=== PATIENT | male | born 1950 | race Two or more races ===

== ENCOUNTER 2021-02-19 08:46 | Emergency (ER) | payer OTHER, MEDICARE ==
[~2021-02-19] VITALS: Ht 177.8 cm; Wt 81.7 kg
[~2021-02-19 08:46] MED LIST: ASPI81CH PO; IBUP600 PO; LOSA25 PO; MULVITMINF PO; ROSU10TA PO
[2021-02-19] MEDS ORDERED: Norco 5-325 Ta1 EACH PO ×2 (08:59→12:11)
[2021-02-19 10:10] LABS: BASOPHILS ABSOLUTE AUTO 0.04 K/mm3 (0.00-0.23); BASOPHILS PERCENT AUTO 1 % (0-2); EOSINOPHILS ABSOLUTE AUTO 0.03 K/mm3 (0.00-0.68); EOSINOPHILS PERCENT AUTO 0 % (0-6); Hematocrit 49.8 % (37.0-53.0); Hemoglobin 17.2 g/dL (13.5-17.5); IMMATURE GRAN ABSOLUTE AUTO 0.04 K/mm3 (0.00-0.10); IMMATURE GRAN PERCENT AUTO 1 % (0-1); LYMPHOCYTES ABSOLUTE AUTO 1.43 K/mm3 (0.84-5.20); LYMPHOCYTES PERCENT AUTO 17 % (21-46); MONOCYTES PERCENT AUTO 6 % (4-13); Mean Corpuscular HGB 29.9 pg (26.0-34.0); Mean Corpuscular HGB Conc 34.5 g/dL (31.5-36.5); Mean Corpuscular Volume 87 fL (80-100); Mean Platelet Volume 8.6 fL (9.1-12.4); NEUTROPHILS ABSOLUTE AUTO 6.38 K/mm3 (1.96-9.15); NEUTROPHILS PERCENT AUTO 76 % (41-73); Platelet Count 309 K/mm3 (150-400); RDW Coefficient Variation 12.7 % (11.7-14.2); RDW Standard Deviation 40.5 fL (35.1-46.3); Red Blood Cell Count 5.75 M/mm3 (4.30-5.90); White Blood Cell Count 8.42 K/mm3 (4.00-11.30)
[2021-02-19 10:40] LABS: Alanine Aminotransfer (ALT/SGP 42 U/L (12-78); Albumin, Blood 4.2 g/dL (3.4-5.0); Albumin/Globulin Ratio 0.9 (0.8-1.8); Alk Phos 147 U/L (50-136); Anion Gap 5 mmol/L (6-16); Aspartate Aminotrans (AST/SGOT 23 U/L (12-37); Bilirubin, Total 0.8 mg/dL (0.1-1.0); Blood Urea Nitrogen 12 mg/dL (8-24); Bun/Creatinine Ratio 15.1 (12.0-20.0); CO2, Blood 30 mmol/L (21-32); Calcium, Blood 9.1 mg/dL (8.5-10.1); Chloride, Blood 103 mmol/L (98-108); Creatinine, Blood 0.79 mg/dL (0.60-1.20); Globulin, Blood 4.7 g/dL (2.2-4.0); Glomerular Filtration Rate >60 (60-); Glucose, Blood 104 mg/dL (70-99); Sodium, Blood 138 mmol/L (136-145); Total Protein, Blood 8.9 g/dL (6.4-8.2); Troponin I <0.015 ng/mL (0.000-0.040)
== END 2021-02-19 13:50 | disposition home or self-care (01) ==
LOC: ER 08:46
PROVIDERS: Physician Assistant
DX: R07.9 Chest pain, unspecified (principal); I10 Essential (primary) hypertension; Z79.899 Other long term (current) drug therapy; Z88.0 Allergy status to penicillin; Z88.2 Allergy status to sulfonamides; Z88.5 Allergy status to narcotic agent; Z91.09 Other allergy status, other than to drugs and biological substances
CPT/HCPCS: 36415; 71046; 80053; 83690; 84484; 85025; 93005; 93010; 99285-25; A9270

== ENCOUNTER 2025-01-26 11:19 | Inpatient (IN) | payer OTHER ==
[~2025-01-26] VITALS: Ht 177.8 cm; Wt 79.4 kg
[~2025-01-26 11:19] MED LIST changes: +ATOR40TA PO; +Amlodipine Bes2.5 MG PO; +LOSA50 PO; +METHOCARBAMOL1000 MG PO; +METOPROLOL PO; +Norco 10-325 T1 EACH; +Norco 5-325 Ta1 EACH PO
[2025-01-26 12:29] LABS: Hematocrit 44.6 % (37.0-53.0); Hemoglobin 15.9 g/dL (13.5-17.5); Mean Corpuscular HGB 30.5 pg (26.0-34.0); Mean Corpuscular HGB Conc 35.7 g/dL (31.5-36.5); Mean Corpuscular Volume 85 fL (80-100); Mean Platelet Volume 9.2 fL (9.1-12.4); Platelet Count 278 K/mm3 (150-400); RDW Coefficient Variation 12.6 % (11.7-14.2); RDW Standard Deviation 39.2 fL (35.1-46.3); Red Blood Cell Count 5.22 M/mm3 (4.30-5.90)
[2025-01-26 12:54] LABS: BAND PERCENT MAN 2 % (0-8); BASOPHILS ABSOLUTE MAN 0.27 K/mm3 (0.00-0.23); BASOPHILS PERCENT MAN 1 % (0-2); EOSINOPHILS PERCENT MAN 0 % (0-6); LYMPHOCYTES PERCENT MAN 9 % (21-46); MONOCYTES ABSOLUTE MAN 1.11 K/mm3 (0.16-1.47); MONOCYTES PERCENT MAN 4 % (4-13); SEG NEUTROPHILS PERCENT MAN 84 % (41-73); TOTAL CELLS COUNTED 100
[2025-01-26 12:55] LABS: Albumin, Blood 3.7 g/dL (3.4-5.0); Albumin/Globulin Ratio 0.9 (0.8-1.8); Bilirubin, Total 1.7 mg/dL (0.1-1.0); Bun/Creatinine Ratio 22.5 (12.0-20.0); Calcium, Blood 8.6 mg/dL (8.5-10.1); Creatinine, Blood 0.8 mg/dL (0.60-1.20); Globulin, Blood 4.2 g/dL (2.2-4.0); Potassium, Blood 3.6 mmol/L (3.5-5.5); Total Protein, Blood 7.9 g/dL (6.4-8.2)
[2025-01-26] MEDS ORDERED: NS 1,000 ML IV SCH ×2 (14:30→15:30)
[2025-01-26] MEDS ORDERED: MetroNIDAZOLE 500MG/NS 100 ml 100 ML IV ONE (14:35)
[2025-01-26] MEDS ORDERED: Ondansetron HCl 2 MG / ML 2ML Vial IV ONE (14:35)
[2025-01-26] MEDS ORDERED: Ciprofloxacin 400MG/D5 200ML 200 ML IV ONE (14:35)
[2025-01-26] MEDS ORDERED: Morphine Sulfate 4 MG/1 ML Injection IV ONE (14:35)
[2025-01-26 15:00] LABS: Source, Urine Clean Catch
[2025-01-26 15:12] LABS: Appearance, Urine Clear (Clear); Bilirubin, Urine Neg (Neg); Blood, Urine 5+ (Neg); Color, Urine Yellow (P-Yellow); Glucose Qualitative, Urine Neg (Neg); Ketones, Urine Neg (Neg); Leukocyte Esterase, Urine Neg (Neg); Nitrite, Urine Neg (Neg); Protein, Urine 2+ (Neg); Urobilinogen, Urine NORM (Normal)
[2025-01-26 15:24] LABS: Bacteria Few /hpf; Squamous Epithelial Cells Rare /hpf (Few); White Blood Cells, Urine 0-2 /hpf (0-5)
[2025-01-26] MEDS ORDERED: FLU VACC TS2024-25(6MOS UP)/PF 45 MCG/0.5 ML SYRINGE IM SCH (15:35)
[2025-01-26] MEDS ORDERED: HYDROcodone 5-APAP 325 TAB PO PRN (15:35)
[2025-01-26] MEDS ORDERED: Ondansetron HCl 2 MG / ML 2ML Vial IV PRN (15:35)
[2025-01-26] MEDS ORDERED: HYDROmorphone HCl 0.5 MG/0.5 ML SYR IV SCH ×2 (16:00→20:00)
[2025-01-26 16:57] VITALS: BP 135/80
[2025-01-26] MEDS ORDERED: CefTRIAXone Sodium 1,000 MG in NS 100 ML IV SCH (18:00)
[2025-01-26] MEDS ORDERED: CefTRIAXone Sodium 2,000 MG in NS 100 ML IV SCH (18:00)
[2025-01-26] MEDS ORDERED: HYDROmorphone HCl 0.5 MG/0.5 ML SYR IV PRN (18:25)
--- NOTE | 2025-01-26 18:49 | NUR ---
PT HAS BEEN STABLE SINCE ADMISSION. PAIN CONTROLLED WITH PRN MEDS. IV ABX ORDERED. FLUIDS INFUSING. PT HAS NO NAUSEA OR EMESIS. USING URINAL. PT SBA WITH PROSTHETIC DEVICES AND CRUTCH. PT NPO AT MIDNIGHT FOR SURGERY TOMORROW. AM LABS TO REPEAT IN AM. FAMILY AT BEDSIDE, ATTENTIVE.
[2025-01-26 19:42] VITALS: BP 115/72
[2025-01-26] MEDS ORDERED: Docusate Sodium 100 MG Cap PO SCH (21:00)
[2025-01-26] MEDS ORDERED: Sennosides 8.6 MG Tab PO SCH (21:00)
[2025-01-26] MEDS ORDERED: Lactobacil 2-S.Thermo-Bifido 1 1 Cap PO SCH (21:00)
[2025-01-26 23:33] VITALS: BP 108/78
[2025-01-27] VITALS (15 sets, daily range): BP systolic 90–125; BP diastolic 64–84
--- NOTE | 2025-01-27 05:34 | NUR ---
NOC SUMMARY- PAIN MANAGED WELL. PT HAS BEEN NPO SINCE OR. PT DENIES N/V. PT CHG BATH PROVIDED. PT CURRENTLY SLEEPING IN NO DISTRESS. CALL LIGHT IN REACH.
[2025-01-27 05:48] LABS: BASOPHILS ABSOLUTE AUTO 0.04 K/mm3 (0.00-0.23); BASOPHILS PERCENT AUTO 0 % (0-2); EOSINOPHILS ABSOLUTE AUTO 0.01 K/mm3 (0.00-0.68); EOSINOPHILS PERCENT AUTO 0 % (0-6); Hemoglobin 12.6 g/dL (13.5-17.5); IMMATURE GRAN ABSOLUTE AUTO 0.29 K/mm3 (0.00-0.10); IMMATURE GRAN PERCENT AUTO 1 % (0-1); LYMPHOCYTES ABSOLUTE AUTO 2.09 K/mm3 (0.84-5.20); LYMPHOCYTES PERCENT AUTO 9 % (21-46); MONOCYTES ABSOLUTE AUTO 1.29 K/mm3 (0.16-1.47); MONOCYTES PERCENT AUTO 6 % (4-13); Mean Corpuscular HGB 31.1 pg (26.0-34.0); Mean Corpuscular Volume 86 fL (80-100); Mean Platelet Volume 9.6 fL (9.1-12.4); NEUTROPHILS PERCENT AUTO 84 % (41-73); Platelet Count 205 K/mm3 (150-400); RDW Coefficient Variation 13.2 % (11.7-14.2); RDW Standard Deviation 41.2 fL (35.1-46.3); Red Blood Cell Count 4.05 M/mm3 (4.30-5.90); White Blood Cell Count 23.22 K/mm3 (4.00-11.30)
[2025-01-27 06:17] LABS: Albumin, Blood 2.6 g/dL (3.4-5.0); Albumin/Globulin Ratio 0.7 (0.8-1.8); Bilirubin, Total 1.4 mg/dL (0.1-1.0); Bun/Creatinine Ratio 17.7 (12.0-20.0); Calcium, Blood 7.5 mg/dL (8.5-10.1); Creatinine, Blood 0.9 mg/dL (0.60-1.20); Globulin, Blood 3.5 g/dL (2.2-4.0); Potassium, Blood 3.6 mmol/L (3.5-5.5); Total Protein, Blood 6.1 g/dL (6.4-8.2)
[2025-01-27] MEDS ORDERED: Indocyanine Green 25 MG Vial IV ONE (07:20)
[2025-01-27] MEDS ORDERED: FentaNYL Citrate 50 MCG/ML 2 ML Injection ONE (07:55)
[2025-01-27] MEDS ORDERED: Rocuronium Bromide 10 MG/ML 5ML Injection IV ONE (07:55)
[2025-01-27] MEDS ORDERED: propofoL 20 ML IV ONE (07:55)
[2025-01-27] MEDS ORDERED: Bupivacaine 0.5% HCl 5 MG/ML 30MLVIAL ONE (08:09)
[2025-01-27] MEDS ORDERED: Lidocaine HCl 4% 5 ML SDA ONE (08:30)
[2025-01-27] MEDS ORDERED: Methocarbamol 500 MG Tab PO PRN (08:40)
[2025-01-27] MEDS ORDERED: Dexamethasone Sod Phos 10 MG/ML 1ML VIAL ONE (08:49)
[2025-01-27] MEDS ORDERED: Ondansetron HCl 2 MG / ML 2ML Vial ONE (08:49)
[2025-01-27] MEDS ORDERED: Sugammadex Sodium 200 MG/2ML SDV (100 MG/ML) ONE (08:50)
[2025-01-27] MEDS ORDERED: AmLODIPine Besylate 5 MG Tab PO SCH ×2 (09:00→18:00)
[2025-01-27] MEDS ORDERED: Metoprolol Succinate 25 MG TABCR PO SCH (09:00)
[2025-01-27] MEDS ORDERED: Atorvastatin 40 MG Tab PO SCH (09:00)
[2025-01-27] MEDS ORDERED: Losartan Potassium 50 MG Tab PO SCH ×2 (09:00→20:00)
[2025-01-27] MEDS ORDERED: HYDROmorphone HCl/Pf 1MG SYR IV PRN (14:55)
--- NOTE | 2025-01-27 17:34 | NUR ---
PATIENT IS ALERT AND ORIENTED AND COOPERATIVE WITH CARE. POD [address] RODRIGUEZ. NO C/O PAIN FOLLOWING SURGERY. PATIENT REQUESTED TO STAY THE NIGHT TONIGHT. FAMILY HAS BEEN AT THE BEDSIDE THOUGHOUT THE SHIFT. VOIDING WITH THE URINAL. REPORTS PASSING GAS, NO BM. TOLERATING FOOD. ON RA. 4 INSERTIONS SITES TO ABDOMEN CLOSED WITH DERMABOND, NO DRAINAGE. AMBULATORY TO THE BATHROOM WITH PROSTETICS AND SBA. WILL CONTINUE TO MONITOR
[2025-01-27] MEDS ORDERED: Ciprofloxacin 400MG/D5 200ML 200 ML IV SCH (18:00)
[2025-01-28 04:30] VITALS: BP 122/84
--- NOTE | 2025-01-28 05:08 | NUR ---
NOC SUMMARY- PT POD #1. PT PAIN MANAGED WELL. PT HAS BEEN AMBULATORY. PT VOIDING WELL. PT TOLERATING PO INTAKE. PT HAS RESTED COMFORTABLY THROUGHOUT SHIFT. CALL LIGHT IN REACH.
[2025-01-28 05:39] LABS: BASOPHILS ABSOLUTE AUTO 0.02 K/mm3 (0.00-0.23); BASOPHILS PERCENT AUTO 0 % (0-2); EOSINOPHILS PERCENT AUTO 0 % (0-6); Hemoglobin 12.4 g/dL (13.5-17.5); IMMATURE GRAN ABSOLUTE AUTO 0.12 K/mm3 (0.00-0.10); IMMATURE GRAN PERCENT AUTO 1 % (0-1); LYMPHOCYTES ABSOLUTE AUTO 1.19 K/mm3 (0.84-5.20); LYMPHOCYTES PERCENT AUTO 7 % (21-46); MONOCYTES ABSOLUTE AUTO 0.71 K/mm3 (0.16-1.47); MONOCYTES PERCENT AUTO 4 % (4-13); Mean Corpuscular HGB 30.8 pg (26.0-34.0); Mean Corpuscular HGB Conc 35.4 g/dL (31.5-36.5); Mean Corpuscular Volume 87 fL (80-100); Mean Platelet Volume 9.5 fL (9.1-12.4); NEUTROPHILS PERCENT AUTO 88 % (41-73); Platelet Count 202 K/mm3 (150-400); RDW Standard Deviation 41.1 fL (35.1-46.3); Red Blood Cell Count 4.02 M/mm3 (4.30-5.90); White Blood Cell Count 17.44 K/mm3 (4.00-11.30)
[2025-01-28 06:46] LABS: Albumin, Blood 2.5 g/dL (3.4-5.0); Albumin/Globulin Ratio 0.6 (0.8-1.8); Bilirubin, Total 0.7 mg/dL (0.1-1.0); Bun/Creatinine Ratio 23.7 (12.0-20.0); Creatinine, Blood 0.72 mg/dL (0.60-1.20); Globulin, Blood 3.9 g/dL (2.2-4.0); Potassium, Blood 3.8 mmol/L (3.5-5.5); Total Protein, Blood 6.4 g/dL (6.4-8.2)
[2025-01-28 06:59] VITALS: BP 124/75
[2025-01-28] MEDS ORDERED: HYDR1TAB94 PO (08:52)
[2025-01-28] MEDS ORDERED: SENN187 PO (08:52)
[2025-01-28] MEDS ORDERED: VISBIOME 112.51 EACH PO (08:53)
[2025-01-28] MEDS ORDERED: CIPR500 PO (08:54)
[2025-01-28] MEDS ORDERED: METO25ER PO (08:55)
[2025-01-28] MEDS ORDERED: DOCU100 PO (08:55)
[2025-01-28 10:08] VITALS: BP 133/79
--- NOTE | 2025-01-28 10:22 | NUR ---
DISCHARGE NOTE PT IS A/O X4, SBA IN ROOM W/ HX BILAT BKAS. DRESSINGS X4 C/D/I, PT DENIES PAIN AND NAUSEA. VOIDING, PASSING GAS, TOLERATING HH DIET. VSS. DISCHARGE INSTRUCTIONS REVIEWED W/ PT AND DAUGHTER, COPY GIVEN, PHYSICAL SCRIPT W/ PT AND MEDS FAXED TO [facility] BY [facility]. PT DC'D VIA WC IN STABLE CONDITION W/ ALL BELONGINGS TO PRIVATE [facility] HOME.
[2025-01-28] MEDS ORDERED: Metoprolol Succinate 25 MG TABCR PO SCH (16:00)
== END 2025-01-28 10:21 | disposition home or self-care (01) | DRG 418 ==
LOC: ER 11:19 → ERHOLD 15:27 → SURS 15:27
PROVIDERS: Student in an Organized Health Care Education/Training Program; Surgery; ADMIT Internal Medicine
PROC: 8E0W4CZ Robotic Assisted Procedure of Trunk Region, Percutaneous Endoscopic Approach (ICD-10-PCS; 2025-01-27)
PROC: BF12YZZ Fluoroscopy of Gallbladder using Other Contrast (ICD-10-PCS; 2025-01-27)
PROC: 0FT44ZZ Resection of Gallbladder, Percutaneous Endoscopic Approach (ICD-10-PCS; principal; 2025-01-27 08:30)
DX: K81.0 Acute cholecystitis (principal); E87.1 Hypo-osmolality and hyponatremia; R18.8 Other ascites; K82.A1 Gangrene of gallbladder in cholecystitis; E78.5 Hyperlipidemia, unspecified; I10 Essential (primary) hypertension; M19.90 Unspecified osteoarthritis, unspecified site; Z89.512 Acquired absence of left leg below knee; Z89.511 Acquired absence of right leg below knee; Z88.2 Allergy status to sulfonamides; Z88.0 Allergy status to penicillin; Z88.5 Allergy status to narcotic agent; Z79.82 Long term (current) use of aspirin; Z79.891 Long term (current) use of opiate analgesic; Z95.0 Presence of cardiac pacemaker
CPT/HCPCS: 36415; 74177; 80053; 81001; 83690; 85025; 88304; 93005; 93010; 94760; 96365-59; 96375; 99285-25; A9270; J0696; J0744; J1100; J1171; J2003; J2270; J2405; J2704; J3010; J7030; Q9967

== ENCOUNTER 2025-09-26 09:07 | Emergency (ER) | payer OTHER ==
[~2025-09-26] VITALS: Ht 177.8 cm; Wt 79.4 kg
[~2025-09-26 09:07] MED LIST changes: +CIPR500 PO; +DOCU100 PO; +HYDR1TAB94 PO; +METO25ER PO; +SENN187 PO; +VISBIOME 112.51 EACH PO
[2025-09-26 11:11] LABS: BASOPHILS ABSOLUTE AUTO 0.04 K/mm3 (0.00-0.23); BASOPHILS PERCENT AUTO 1 % (0-2); EOSINOPHILS ABSOLUTE AUTO 0.03 K/mm3 (0.00-0.68); EOSINOPHILS PERCENT AUTO 0 % (0-6); Hematocrit 43.2 % (37.0-53.0); Hemoglobin 15.3 g/dL (13.5-17.5); IMMATURE GRAN ABSOLUTE AUTO 0.03 K/mm3 (0.00-0.10); IMMATURE GRAN PERCENT AUTO 0 % (0-1); LYMPHOCYTES ABSOLUTE AUTO 1.64 K/mm3 (0.84-5.20); LYMPHOCYTES PERCENT AUTO 20 % (21-46); MONOCYTES ABSOLUTE AUTO 0.60 K/mm3 (0.16-1.47); MONOCYTES PERCENT AUTO 8 % (4-13); Mean Corpuscular HGB Conc 35.4 g/dL (31.5-36.5); Mean Corpuscular Volume 89 fL (80-100); NEUTROPHILS ABSOLUTE AUTO 5.68 K/mm3 (1.96-9.15); NEUTROPHILS PERCENT AUTO 71 % (41-73); NRBC ABSOLUTE 0.00 K/mm3 (0.00-0.02); NRBC Auto 0.0 /100 WBC (0.0-0.2); Platelet Count 242 K/mm3 (150-400); RDW Coefficient Variation 12.5 % (11.7-14.2); RDW Standard Deviation 40.6 fL (35.1-46.3)
[2025-09-26 11:20] LABS: Source, Urine Voided
[2025-09-26 11:29] LABS: Bilirubin, Urine Neg (Neg); Color, Urine Yellow (P-Yellow); Glucose Qualitative, Urine Neg (Neg); Ketones, Urine Neg (Neg); Leukocyte Esterase, Urine Neg (Neg); Protein, Urine 1+ (Neg); Specific Gravity, Urine 1.010 (1.003-1.022); Urobilinogen, Urine NORM (Normal)
[2025-09-26 11:36] LABS: Alanine Aminotransfer (ALT/SGP 34.0 U/L (12-78); Albumin, Blood 3.7 g/dL (3.4-5.0); Albumin/Globulin Ratio 1.0 (0.8-1.8); Anion Gap 7.0 mmol/L (3-11); Aspartate Aminotrans (AST/SGOT 21.0 U/L (12-37); Bilirubin, Total 0.6 mg/dL (0.1-1.0); Blood Urea Nitrogen 19.0 mg/dL (8-24); CO2, Blood 29.0 mmol/L (21-32); Calcium, Blood 8.7 mg/dL (8.5-10.1); Chloride, Blood 107.0 mmol/L (98-108); Creatinine, Blood 0.78 mg/dL (0.60-1.20); Globulin, Blood 3.6 g/dL (2.2-4.0); Glucose, Blood 92.0 mg/dL (70-99); Potassium, Blood 4.2 mmol/L (3.5-5.5); Sodium, Blood 139.0 mmol/L (136-145); Total Protein, Blood 7.3 g/dL (6.4-8.2)
[2025-09-26 11:39] LABS: White Blood Cells, Urine 0-2 /hpf (0-5)
[2025-09-26 13:45] VITALS: BP 139/88
== END 2025-09-26 13:52 | disposition home or self-care (01) ==
LOC: ER 09:07
PROVIDERS: Emergency Medicine
DX: B34.9 Viral infection, unspecified (principal); R10.9 Unspecified abdominal pain; I10 Essential (primary) hypertension; Z88.0 Allergy status to penicillin; Z88.2 Allergy status to sulfonamides; Z79.82 Long term (current) use of aspirin
CPT/HCPCS: 74177; 80053; 81001; 83690; 85025; 93005; 93010; 99284-25; Q9967